=== PATIENT | male | born 1965 | race Caucasian/White ===

== ENCOUNTER 2018-09-08 06:43 | Day surgery (SDC) | payer OTHER ==
[~2018-09-08 06:43] MED LIST: Dextrose 5%-0.45% NaCl 1,000 ML IV SCH; Midazolam 1 MG/ML 2 ML SDV ONE; Sodium Chloride 0.9% 10 ML Syringe FLUSH PRN; fentaNYL 100 MCG/2 ML SDV ONE
[2018-09-08] MEDS ORDERED: Midazolam 1 MG/ML 2 ML SDV IV ONE ×7 (06:44→07:52)
[2018-09-08] MEDS ORDERED: fentaNYL 100 MCG/2 ML SDV IV ONE ×5 (06:44→07:58)
--- NOTE | 2018-09-08 11:57 | OR ---
DATE: 09/08/2018 PROCEDURE PERFORMED: Total colonoscopy and multiple cold snare polypectomies. INSTRUMENT USED: CF-HQ19AL Olympus video colonoscope. PREMEDICATIONS: Fentanyl 150 mcg intravenous, Versed 4 mg intravenous. Nasal O2 cannula. The procedure was done under pulse oximetry, BP recording, and potline monitor. INDICATION: The patient with positive FIT. Colonoscopic examination is done for detection of any polypoid lesions and removal, endoscopic hemostasis therapy if needed. DESCRIPTION OF PROCEDURE: Initial rectal exam was unremarkable. Rigid anoscopy was normal. The colonoscope was passed with ease. The 3-mm sized benign- appearing polyps, 2 in number, were noted in the rectum; photograph was taken. Cold snare polypectomies were done. The tissues were retrieved and sent for histopathology. Numerous scattered diverticula were noted in the distal left colon along with deformity. The scope was passed with relative ease up to the cecal area. The examination was compromised in quite a few areas due to the presence of large amount of liquid and solid fecal material that could not be aspirated clear. No bleeding was noted from any of the visualized areas at the commencement of the examination. No stricture. No vascular ectasia. No large isolated ulcerations seen. No evidence of diffuse inflammatory bowel disease in the form of friability, contact bleeding, or ulcerations. Multiple 3 to 5-mm sized polyps were noted in the descending colon as well as in the ascending colon and hepatic flexure areas, largest measuring 1 cm in size. Polypectomies could not be accomplished due to the presence of large amount of fecal material solid in consistency around. Probing the proximal sides of folds and flexures using adequate distention and clearing up the stool material, withdrawal of the scope was made, cecum to rectum, time over 6 minutes. No bleeding was noted from any of the visualized areas at the completion of examination. IMPRESSION: 1. Diverticulosis. 2. Multiple colonic polyps. The patient tolerated the procedure well. [facility] /[id number]
== END 2018-09-08 10:25 | disposition home or self-care (01) ==
LOC: DL.ENDO 06:43
PROVIDERS: ATTEND Internal Medicine Gastroenterology
DX: K63.5 Polyp of colon (principal); K57.90 Diverticulosis of intestine, part unspecified, without perforation or abscess without bleeding; G47.33 Obstructive sleep apnea (adult) (pediatric); F17.210 Nicotine dependence, cigarettes, uncomplicated; E66.01 Morbid (severe) obesity due to excess calories; Z68.42 Body mass index [BMI] 45.0-49.9, adult; Z79.82 Long term (current) use of aspirin; Z86.79 Personal history of other diseases of the circulatory system; Z86.39 Personal history of other endocrine, nutritional and metabolic disease; Z91.09 Other allergy status, other than to drugs and biological substances
CPT/HCPCS: 45385; J2250; J3010; J7042